=== PATIENT | male | born 1990 | race Caucasian/White ===

== ENCOUNTER 2018-03-04 08:21 | Emergency (ER) | payer BC ==
[2018-03-04 08:32] VITALS: BP 176/90; PULSE 79; RESP 16; TEMP 98.5
--- NOTE | 2018-03-04 09:03 | ED ---
General Adult HPI - General Chief complaint: Skin/Abscess/Foreign Body Stated complaint: Rash Time Seen by Provider: 03/04/18 08:47 Source: patient, RN notes reviewed Mode of arrival: ambulatory Limitations: no limitations - History of Present Illness Initial comments: Patient 27-year-old male presented to the emergency room today with a rash times one. He states it started on his left hand but she was sides. States very itchy. States he's been to multiple doctors been on steroids also topical creams. He states he was treated with permethrin but did not repeat the treatment in 7-10 days. He does not that he seemed like this cream did help him the most. Patient denies any other complaints or symptoms. Patient denies any recent fever, chills, shortness of breath, chest pain, back pain, abdominal pain, nausea or vomiting, numbness or tingling, dysuria or hematuria, constipation or diarrhea, headaches or visual changes, or any other complaints. - Related Data Home Medications Medication Instructions Recorded Confirmed Cetirizine HCl [Zyrtec] 10 mg PO DAILY 03/04/18 03/04/18 Previous Rx's Medication Instructions Recorded Permethrin 5% Cream [Elimite] 1 applic TOPICAL ONCE #1 tube 03/04/18 hydrOXYzine HCL [Atarax] 1 - 2 tab PO TID PRN #30 tab 03/04/18 Allergies Allergy/AdvReac Type Severity Reaction Status Date / Time No Known Allergies Allergy Verified 03/04/18 08:46 Review of Systems ROS Statement: Those systems with pertinent positive or pertinent negative responses have been documented in the HPI. ROS Other: All systems not noted in ROS Statement are negative. Past Medical History Past Medical History: No Reported History History of Any Multi-Drug Resistant Organisms: None Reported Additional Past Surgical History / Comment(s): Right wrist surgery Past Psychological History: Anxiety, Depression Smoking Status: Current every day smoker Past Alcohol Use History: Occasional Past Drug Use History: Marijuana General Exam - General Exam Comments Initial Comments: General: The patient is awake and alert, in no distress, and does not appear acutely ill. Eye: Pupils are equal, round and reactive to light, extra-ocular movements are intact. No nystagmus. There is normal conjunctiva bilaterally. No signs of icterus. Ears, nose, mouth and throat: There are moist mucous membranes and no oral lesions. Neck: The neck is supple, there is no tenderness or JVD. Musculoskeletal: Normal ROM, no tenderness. Strength 5/5. Sensation intact. Pulses equal bilaterally 2+. Neurological: A&O x 3. CN II-XII intact, There are no obvious motor or sensory deficits. Coordination appears grossly intact. Speech is normal. Skin: Patient does have maculopapular rash starting to the left hand posteriorly with a few spots seen on the arms and also the sides of the trunk both left and right. Psychiatric: Cooperative, appropriate mood & affect, normal judgment. Limitations: no limitations Course Vital Signs 03/04/18 08:30 Temperature 98.5 F Pulse Rate 79 Respiratory 16 Rate Blood Pressure 176/90 O2 Sat by Pulse 99 Oximetry Medical Decision Making - Medical Decision Making Patient will be retreated with permethrin cream. He is advised to repeat the treatment in 7-10 days as it does not kill any of the eggs. Advised that if this does not help his symptoms to follow-up in dermatology for further testing. Disposition Clinical Impression: Scabies Disposition: HOME SELF-CARE Condition: Good Instructions: Scabies (ED) Additional Instructions: Please repeat treatment in 7-10 days as discussed. Please follow-up dermatology if there is no improvement for further evaluation. Prescriptions: hydrOXYzine HCL [Atarax] 1 - 2 tab PO TID PRN #30 tab PRN Reason: Itching Permethrin 5% Cream [Elimite] 1 applic TOPICAL ONCE #1 tube Is patient prescribed a controlled substance at d/c from ED?: No Referrals: Juan Aquino MD [Primary Care Provider] - 1-2 days Aron Wells MD [STAFF PHYSICIAN] - 1-2 days Time of Disposition: 09:01
== END 2018-03-04 09:11 | disposition home or self-care (01) ==
LOC: EC 08:21
DX: B86 Scabies (principal); F17.200 Nicotine dependence, unspecified, uncomplicated; Z79.899 Other long term (current) drug therapy
CPT/HCPCS: 99282

== ENCOUNTER → 2020-07-04 | Outpatient (CLI) | payer BC ==
--- NOTE | 2020-07-04 18:37 | PN ---
PROGRESS NOTE Ash is coming in for a compliance check regarding obstructive sleep apnea. The patient was diagnosed having REAGAN based on a home sleep study that was done few months back. The patient was found to have moderate to severe disease with an AHI of 22. He is currently utilizing APAP at a minimum pressure of 5, maximum pressure of 15. He is feeling better, much more refreshed and alert during the day. He is very content with the ongoing treatment. Based on the compliance data, the patient has been achieving more than 4 hours of CPAP use around 66% of the time with an average of 4.8 hours per night. His average CPAP pressure is around 14.7. His AHI is down to 4.4. He is using an AirFit F20 medium-sized full-face mask. He has no complaints. No chest pain, shortness of breath or heartburn or gastric distention. Herrick score is 13. REVIEW OF SYSTEMS: Fourteen-point review of system was done. Positive findings are all mentioned above in the history of present illness. PHYSICAL EXAMINATION: BP is 133/80, pulse 82, respirations 16, temperature 98.5. Weight is 182, saturation 97% on room air. GENERAL APPEARANCE: Calm, comfortable. HEAD: Atraumatic, normocephalic. NECK: Supple. No JVD. No goiter or neck masses. LUNGS: Clear to auscultation. HEART: Heart sounds are regular rate and rhythm. Normal S1, S2. No S3, S4. No murmurs. ABDOMEN: Soft, nontender. No organomegaly. EXTREMITIES: No edema. No cyanosis or clubbing. IMPRESSION: 1. Obstructive sleep apnea, moderate to severe, AHI of 22, currently undergoing successful treatment with APAP. 2. Hypersomnia, improved. 3. Snoring, recovered. PLAN: 1. Continue APAP therapy at the same level of pressure. 2. Keep the same mask interface. Treatment is successful for now. No need for any further adjustments. See me back in a year's time. MMODL / IJN: [id number] /
== END | disposition home or self-care (01) ==
LOC: SLEEP 15:28
PROVIDERS: ATTEND Internal Medicine Critical Care Medicine
DX: G47.33 Obstructive sleep apnea (adult) (pediatric) (principal); Z99.89 Dependence on other enabling machines and devices

== ENCOUNTER 2021-05-27 10:35 | Emergency (ER) | payer BC, OTHER ==
[2021-05-27 10:46] VITALS: BP 129/77; PULSE 91; RESP 16; TEMP 98
[2021-05-27] MEDS ORDERED: DIPH,PERTUS(ACELL)TETVAC-LF 0.5 ML VIAL IM ONE (10:54)
[2021-05-27] MEDS ORDERED: LIDOCAINE 1% INJ 10MG/ML (20 ML MDV) SQ ONE (10:55)
[2021-05-27] MEDS ORDERED: BACITRACIN OINT 1 EACH PACKET TOPICAL ONE (11:11)
--- NOTE | 2021-05-27 11:11 | XR ---
EXAMINATION TYPE: XR tibia fibula LT DATE OF EXAM: 05/27/2021 COMPARISON: NONE HISTORY: Pain TECHNIQUE: Two views are submitted. FINDINGS: The osseous structures are intact. The joint spaces are preserved. Tiny plantar calcaneal spur. IMPRESSION: 1. No acute osseous abnormality.
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
== END 2021-05-27 11:26 | disposition home or self-care (01) ==
LOC: EC 10:35
DX: S81.832A Puncture wound without foreign body, left lower leg, initial encounter (principal); S81.812A Laceration without foreign body, left lower leg, initial encounter; F17.200 Nicotine dependence, unspecified, uncomplicated; J45.909 Unspecified asthma, uncomplicated; Z23 Encounter for immunization; V86.06XA Driver of dirt bike or motor/cross bike injured in traffic accident, initial encounter
CPT/HCPCS: 73590; 90715; 99283; 12002; 90471; J2001